=== PATIENT | female | born 1960 | race Caucasian/White ===

== ENCOUNTER 2016-09-23 11:41 | Emergency (ER) | payer OTHER ==
[~2016-09-23] VITALS: Ht 157.5 cm; Wt 105.2 kg
[2016-09-23] MEDS ORDERED: SERTRALINE HCL100 MG PO (12:41)
[2016-09-23] MEDS ORDERED: ZIPRASIDONE HCL60 M1 PO (12:41)
[2016-09-23] MEDS ORDERED: ARIPIPRAZOLE5 M1 PO (12:41)
--- NOTE | 2016-09-23 12:41 | ED INFLUENZA/URI COMPLAINT ---
History of Present Illness General Chief Complaint: General Adult Stated Complaint: "I HAVE HAD A HEAD AND CHEST COLD FEW DAYS" Source: patient Exam Limitations: no limitations Vital Signs & Intake/Output Vital Signs & Intake/Output Vital Signs Date Time Temp Pulse Resp B/P Pulse O2 O2 Flow FiO2 Ox Delivery Rate 09/23 1731 98.6 89 16 162/92 97 Room Air 09/23 1620 Room Air 09/23 1618 105 200/90 09/23 1540 98.1 105 16 190/100 99 Room Air 09/23 1431 86 200/96 09/23 1416 86 200/96 09/23 1335 86 220/110 09/23 1312 80 220/110 09/23 1206 99.3 82 20 195/125 96 Room Air Allergies Coded Allergies: hydrocodone (From VICODIN) (Intermediate, GI UPSET 09/23/16) morphine (Intermediate, GI UPSET 09/23/16) oxycodone (Intermediate, GI UPSET 09/23/16) Penicillins (Mild, RASH 09/23/16) Reconcile Medications Albuterol Sulfate (Ventolin Hfa) 90 MCG HFA.AER.AD 2 PUF INH Q4-6 PRN PRN SHORTNESS OF BREATH Aripiprazole 5 MG TABLET 1 TAB PO DAILY MENTAL HEALTH (Reported) Azithromycin (Zithromax) 500 MG TABLET 1 TAB PO DAILY BRONCHITIS Fluticasone Propionate (Flonase Allergy Relief) 50 MCG/ACTUATION SPRAY.SUSP 2 SPRAY SORIN DAILY CONGESTION Lamotrigine 25 MG TABLET 1 TAB PO QPM MENTAL HEALTH (Reported) Lisinopril 20 MG TABLET 1 TAB PO QPM HEART (Reported) Oxcarbazepine 600 MG TABLET 1 TAB PO QPM MENTAL HEALTH (Reported) Sertraline HCl 100 MG TABLET 1 TAB PO DAILY MENTAL HEALTH (Reported) Ziprasidone HCl 60 MG CAPSULE 1 CAP PO DAILY MENTAL HEALTH (Reported) Triage Note: TRIAGE: PT SENT TO ER [facility] FOR EVAL OF HTN. B/P WAS 184/119 L ARM AND 186/120 R ARM AT [facility]. B/P 195/125 AT TRIAGE. PT STATES WENT TO CLINIC FOR S/S HEAD/CHEST COLD SINCE FRIDAY. HAS BEEN TAKING MUCINEX WITH NO RELIEF. COMPLAINS OF MILD HEADACHE PAIN ALSO SINCE FRIDAY. HAS HX OF HTN, TAKES LISINOPRIL DAILY FOR SAME, LAST DOSE 10 PM LAST NIGHT. Triage Nurses Notes Reviewed? yes Onset: Gradual Duration: constant Timing: recent history Severity: moderate Severity Numbers: 5 HPI: Patient is a 56-year-old female with past medical history of hypertension was compliant with her lisinopril 20 mg a day where she complains of a 3 day history of gradual onset of head cold and congestion nasal congestion and mild shortness of breath due to nonproductive cough. Patient was valuated at urgent care facility today and was advised to present to the emergency room for significantly elevated blood pressure. Patient currently denies any fevers chills headache chest pain arm pain jaw pain nausea vomiting or hemoptysis or leg swelling. Past History Travel History Traveled to [place] past 21 day No Medical History Any Pertinent Medical History? 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 No Review of Systems Review of Systems Constitutional: Reports: no symptoms. EENTM: Reports: see HPI, nasal congestion. Respiratory: Reports: see HPI, cough. Cardiovascular: Reports: no symptoms. GI: Reports: no symptoms. Genitourinary: Reports: no symptoms. Musculoskeletal: Reports: no symptoms. Skin: Reports: no symptoms. Neurological/Psychological: Reports: see HPI, headache. Hematologic/Endocrine: Reports: no symptoms. Immunologic/Allergic: Reports: no symptoms. All Other Systems: Reviewed and Negative Physical Exam Physical Exam General Appearance: no apparent distress, alert, comfortable Ears, Nose, Throat: moist mucous membrane, hearing grossly normal, Tympanic normal, pharynx normal, nasal congestion Comments: Well-developed well-nourished person in no acute distress HEENT:, extraocular motion intact, no nystagmus. Pupils equally round and reactive to light and accommodation. Nose is atraumatic. External auditory canal and Tympanic membranes clear. Pharynx normal. No swelling or edema. Nontender sinus Neck: Supple, no lymphadenopathy, normal range of motion without pain or tenderness Back: Nontender, no CVA tenderness. Cardiovascular: Regular rate and rhythms no murmurs rubs or gallops, normal JVP Respiratory: Chest nontender. No respiratory distress.breath sounds clear to auscultation bilaterally Abdomen: Soft, nontender nondistended, no appreciable organomegaly. Normal bowel sounds. No ascites Extremity: No edema, no calf tenderness to palpation, normal and equal pulses. Neuro: Alert oriented x3, motor sensory normal, cranial nerves II through XII grossly intact. Skin: No appreciable rash on exposed skin, skin is warm and dry. Psych: Mood and affect is normal, memory and judgment is normal. Core Measures Severe Sepsis Present: No Septic Shock Present: No Progress Differential Diagnosis: influenza, meningitis, neutropenia, otitis, pneumonia, pharyngitis, sinusitis, HYPERTENSIVE CRISIS, HYPERTENSIVE EMERGENCY, HYPERTENSION, Plan of Care: Orders Procedure Date/time Status Heart Healthy Diet 09/24 B Active TROPONIN LEVEL 09/23 1545 Complete COMPREHENSIVE METABOLIC PANEL 09/23 1545 Complete CBC WITHOUT DIFFERENTIAL 09/23 1545 Complete EKG 09/23 1421 Active Current Medications Sig/Angelica Start time Last Medication Dose Stop Time Status Admin Esmolol HCl 100 MG CONTINOUS INFUSION 09/23 1600 CAN (Brevibloc 100 MG Lissa Inj) Laboratory Tests 09/23/16 1620: Anion Gap 13, Estimated GFR > 60, BUN/Creatinine Ratio 12.9, Glucose 87, Calcium 9.4, Total Bilirubin 0.4, AST 21, ALT 36, Alkaline Phosphatase 52, Troponin I < 0.01, Total Protein 7.5, Albumin 4.2, Globulin 3.3, Albumin/Globulin Ratio 1.3, CBC w Diff NO MAN DIFF REQ, RBC 4.37, MCV 84.9, MCH 27.7, RDW 14.3, MPV 10.6 H, Gran % 71.9, Lymphocytes % 17.9 L, Monocytes % 8.7, Eosinophils % 1.1, Basophils % 0.4, Absolute Granulocytes 5.0, Absolute Lymphocytes 1.2, Absolute Monocytes 0.6, Absolute Eosinophils 0.1, Absolute Basophils 0, PUBS MCHC 32.6 L Patient currently looks well no apparent distress and has concerns of upper RESPIRATORY infection however patient did have elevated blood pressure in which she was administered IV hydralazine with mild improvement with 10 mg in which she was given another 10 mg of IV hydralazine and patient will be reevaluated. No signs of end organ damage at this time. Patient did have elevated blood pressure and which LABETALOL was administered patient had improvement of her elevated blood pressure. Patient had unremarkable blood work and EKG. Patient does have a follow-up appointment tomorrow with her primary care doctor. Patient will be treated for concerns of upper respiratory infection. (GUIDO SHELL,NAZIA) Initial ED EKG: SINUS RHYTHM NOTED AT 92 BPM Departure Departure Disposition: HOME OR SELF CARE Condition: Stable Clinical Impression Primary Impression: Bronchitis Secondary Impressions: Hypertension Referrals: LENI TREJO MD (PCP/Family) Additional Instructions: As discussed you have an appointment tomorrow with your primary care doctor, please go to this for further evaluation treatment especially FOR your blood pressure. Begin the prescription of azithromycin for the full course, the prescription of Ventolin inhaler for shortness of breath and Flonase for congestion. Begin [id number] Sudafed for head congestion and Mucinex for chest congestion. If symptoms worsen return to emergency him. Prescriptions are waiting at your pharmacy Departure Forms: Customer Survey General Discharge Information Prescriptions: Current Visit Scripts Azithromycin (Zithromax) 1 TAB PO DAILY #5 TAB Albuterol Sulfate (Ventolin Hfa) 2 PUF INH Q4-6 PRN PRN SHORTNESS OF BREATH #1 INHAL Fluticasone Propionate (Flonase Allergy Relief) 2 SPRAY SORIN DAILY #1 BOT
[2016-09-23] MEDS ORDERED: LAMOTRIGINE25 M3 PO (12:42)
[2016-09-23] MEDS ORDERED: OXCARBAZEPINE600 M1 PO (12:42)
[2016-09-23] MEDS ORDERED: LISINOPRIL20 M1 PO (12:42)
[2016-09-23 16:29] LABS: ABSOLUTE BASOPHIL COUNT 0 /CUMM (0.0-0.2); ABSOLUTE EOSINOPHIL COUNT 0.1 /CUMM (0.0-0.7); ABSOLUTE LYMPH COUNT 1.2 /CUMM (1.2-3.4); ABSOLUTE MONOCYTE COUNT 0.6 /CUMM (0.10-0.60); BASOPHIL % 0.4 % (0.0-2.0); EOSINOPHIL % 1.1 % (0-5); GRANULOCYTE % 71.9 % (42.2-75.2); HEMATOCRIT 37.1 % (37-47); MEAN CORPUSCULAR HGB 27.7 PG (27.0-31.0); MEAN CORPUSCULAR HGB CONC 32.6 G/DL (33.0-37.0); MEAN CORPUSCULAR VOLUME 84.9 FL (81.0-99.0); MEAN PLATELET VOLUME 10.6 FL (7.4-10.4); PLATELET COUNT 226 /CUMM (130-400); RBC DISTRIBUTION WIDTH 14.3 % (11.5-14.5); RED BLOOD CELL CT 4.37 /CUMM (4.20-5.40); WHITE BLOOD CELL COUNT 6.9 /CUMM (4.8-10.8)
[2016-09-23] MEDS ORDERED: FLONASE ALLERG9.9 ML NAS (16:52)
[2016-09-23] MEDS ORDERED: ZITHROMAX500 M2 PO (16:52)
[2016-09-23] MEDS ORDERED: VENTOLIN HFA18 GM INH (16:52)
[2016-09-23 17:31] VITALS: BP 162/92
== END 2016-09-23 17:31 ==
LOC: ERH 11:41
PROVIDERS: Physician Assistant
DX: J40 Bronchitis, not specified as acute or chronic (principal); I10 Essential (primary) hypertension
CPT/HCPCS: 93005; 93010; 96374; 96375; 96376; J0360